=== PATIENT | male | born 1970 | race Caucasian/White ===

== ENCOUNTER 2017-02-22 23:31 | Emergency (ER) | payer OTHER ==
[2017-02-22 23:50] VITALS: O2SAT 98
[2017-02-22] MEDS ORDERED: Ativan 2 MG/1 ML VIAL IM ONE (23:57)
[2017-02-22] MEDS ORDERED: ZOFRAN ODT 4 MG PO ONE (23:57)
[2017-02-22] MEDS ORDERED: OXYCODONE-ACETAMINOPHEN 10-325 PO STA (23:57)
[2017-02-22] MEDS ORDERED: Catapres 0.1 MG PO ONE (23:57)
[2017-02-22] MEDS ORDERED: IMODIUM 2 MG PO ONE (23:58)
--- NOTE | 2017-02-23 00:01 | ERPHSYRPT ---
- History of Present Illness Time Seen by Provider: 02/22/17 23:50 Source: patient, police Exam Limitations: no limitations Patient Subjective Stated Complaint: pt states he is withdrawing from his medications. states his last dose of valium was approp 0200 today. Triage Nursing Assessment: pt alert and oriented, answers questions approp. pt ambulatory with steady gait noted. respirations nonlabored with lungs cta.skin pink, moist. pt having tremors in exts. Physician History: 46 y/o male brought in by police for withdrawal type symptoms. Pt was arrested from court today and last had valium this afternoon. For the past 18 years, patient has been on percocet and valium for back pain. Pt arrives shaking with upper extremity tremors. Pt also takes clonidine and was not given it in skilled nursing. Pt had one episode of nausea and vomiting and is starting to have diarrhea. Timing/Duration: today Severity: moderate Allergies/Adverse Reactions: Penicillins Allergy (Verified 02/22/17 23:50) Swelling of Feet Home Medications: Dextroamphetamine/Amphetamine [Adderall 30 mg Tablet] 30 mg PO DAILY 11/01/14 [ History] Diazepam 5 mg [Valium 5 MG] 10 mg PO TID 11/01/14 [History] Oxycodone HCl/Acetaminophen [Oxycodone-Acetaminophen 10-325] 2 tab PO TID [History] Lisinopril 20 mg [Zestril 20 MG] 20 mg PO BID 03/11/16 [History] Meloxicam [Mobic] 15 mg PO BID 03/11/16 [History] Hx Tetanus, Diphtheria Vaccination/Date Given: Yes Hx Influenza Vaccination/Date Given: No Hx Pneumococcal Vaccination/Date Given: No Immunizations Up to Date: Yes - Review of Systems Constitutional: No Fever, No Chills Eyes: No Symptoms Ears, Nose, & Throat: No Symptoms Respiratory: No Cough, No Dyspnea Cardiac: No Chest Pain, No Edema, No Syncope Abdominal/Gastrointestinal: Nausea, Vomiting, Diarrhea, No Abdominal Pain Genitourinary Symptoms: No Dysuria Musculoskeletal: Back Pain, No Neck Pain Skin: No Rash Neurological: No Dizziness, No Focal Weakness, No Sensory Changes Psychological: No Symptoms, Drug Abuse, Anxiety, No Hallucinations Endocrine: No Symptoms All Other Systems: Reviewed and Negative - Past Medical History Pertinent Past Medical History: Yes Cardiac History: Coronary Artery Disease, Hypertension Musculoskeletal History: Arthritis Psycho-Social History: Anxiety, Depression Other Medical History: chronic back pain - Past Surgical History Past Surgical History: Yes Musculoskeletal: Orthopedic Surgery Other Surgical History: 2 back and 1 knee surgery, [facility] - Social History Smoking Status: Current every day smoker How long have you smoked: 20 Exposure to second hand smoke: No Drug Use: marijuana Patient Lives Alone: Yes - Nursing Vital Signs Nursing Vital Signs: Initial Vital Signs Temperature 97.8 F 02/22/17 23:38 Pulse Rate 100 H 02/22/17 23:38 Respiratory Rate 18 02/22/17 23:38 Blood Pressure 177/90 02/22/17 23:38 O2 Sat by Pulse Oximetry 98 02/22/17 23:38 Pain Scale Pain Intensity 8 - Physical Exam General Appearance: mild distress, alert, anxiety Eye Exam: PERRL/EOMI, eyes nml inspection Ears, Nose, Throat Exam: normal ENT inspection, TMs normal, pharynx normal, moist mucous membranes Neck Exam: normal inspection, non-tender, supple, full range of motion Respiratory Exam: normal breath sounds, lungs clear, No respiratory distress Cardiovascular Exam: regular rate/rhythm, normal heart sounds, normal peripheral pulses, tachycardia Gastrointestinal/Abdomen Exam: soft, normal bowel sounds, No tenderness, No mass Back Exam: normal inspection, normal range of motion, No CVA tenderness, No vertebral tenderness Extremity Exam: normal inspection, normal range of motion, pelvis stable Neurologic Exam: alert, oriented x 3, cooperative, normal mood/affect, nml cerebellar function, nml station & gait, sensation nml, No motor deficits Skin Exam: normal color, warm, dry, No rash Lymphatic Exam: No adenopathy SpO2: 98 Oxygen Delivery: Room Air - Course Nursing assessment & vital signs reviewed: Yes Ordered Tests: Medication Summary Discontinued Medications Generic Name Dose Route Start Last Admin Trade Name Freq PRN Reason Stop Dose Admin Clonidine 0.1 mg 02/22/17 23:57 02/23/17 00:21 Catapres 0.1 Mg PO 02/22/17 23:58 0.1 mg STAT ONE Administration Clonidine Confirm 02/23/17 00:18 Catapres 0.1 Mg Administered 02/23/17 00:19 Dose 0.1 mg .ROUTE .STK-MED ONE Loperamide HCl 4 mg 02/22/17 23:58 Imodium 2 Mg PO 02/22/17 23:59 STAT ONE Lorazepam 1 mg 02/22/17 23:57 02/23/17 00:20 Ativan 2 Mg/1 Ml Vial IM 02/22/17 23:58 1 mg STAT ONE Administration Lorazepam Confirm 02/23/17 00:18 Ativan 2 Mg/1 Ml Vial Administered 02/23/17 00:19 Dose 2 mg .ROUTE .STK-MED ONE Ondansetron HCl 4 mg 02/22/17 23:57 12 00:20 Zofran Odt 4 Mg PO 02/22/17 23:58 4 mg STAT ONE Administration Ondansetron HCl Confirm 02/23/17 00:18 Zofran Odt 4 Mg Administered 02/23/17 00:19 Dose 4 mg .ROUTE .STK-MED ONE Oxycodone/Acetaminophen 1 tab 02/22/17 23:57 02/23/17 00:20 Oxycodone-Acetaminophen 10-325 PO 02/22/17 23:58 1 tab STAT STA Administration Oxycodone/Acetaminophen Confirm 02/23/17 00:18 Oxycodone-Acetaminophen 10-325 Administered 02/23/17 00:19 Dose 1 tab .ROUTE .STK-MED ONE - Progress Progress: improved Progress Note: 02/23/17 00:42 Pt feels better after receiving clonidine, percocet, ativan, zofran and imodium. I have recommended to the skilled nursing that the patient be restarted on percocet and valium for the next 3 days while he is in skilled nursing. - Departure Time of Disposition: 00:43 Departure Disposition: Home Clinical Impression: Withdrawal complaint Condition: Stable Critical Care Time: No Referrals: BOY JACOBSEN [Primary Care Provider] - Instructions: Drug Withdrawal Additional Instructions: The patient is to be restarted on the following medications while in skilled nursing: 1) Percocet 10/325mg PO Q 6 hrs as needed for pain 2) Valium 2mg PO Q 8 hrs as needed for spasm The patient can also receive clonidine 0.1mg as needed for withdrawal symptoms
[2017-02-23] MEDS ORDERED: OXYCODONE-ACETAMINOPHEN 10-325 ONE (00:18)
[2017-02-23] MEDS ORDERED: Ativan 2 MG/1 ML VIAL ONE (00:18)
[2017-02-23] MEDS ORDERED: Catapres 0.1 MG ONE (00:18)
[2017-02-23] MEDS ORDERED: ZOFRAN ODT 4 MG ONE (00:18)
[2017-02-23 01:17] VITALS: BP 150/85; PULSE 70
== END 2017-02-23 01:18 | disposition home or self-care (01) ==
LOC: ED 23:31
DX: F13.239 Sedative, hypnotic or anxiolytic dependence with withdrawal, unspecified (principal); R11.2 Nausea with vomiting, unspecified; Z79.891 Long term (current) use of opiate analgesic; Z79.899 Other long term (current) drug therapy; I10 Essential (primary) hypertension; I25.10 Atherosclerotic heart disease of native coronary artery without angina pectoris; F15.93 Other stimulant use, unspecified with withdrawal
CPT/HCPCS: 96372; 99283; J2060; Q0162; A9270-GY